=== PATIENT | male | born 1985 ===

== ENCOUNTER 2018-05-07 10:51 | Emergency (ER) | payer OTHER ==
--- NOTE | 2018-05-07 11:00 | C.PDOC ---
History Of Present Illness 32 y/o male comes in for evaluation of abdominal pain, worsening for the last 2 days. Patient is a poor historian. States pain is worst to epigastric region and left side. Also reports nausea and associated diarrhea. No vomiting. Otherwise patient denies any vomiting, chest pain, SOB, dizziness, or dark or bloody stools. Time Seen by Provider: 05/07/18 10:53 Chief Complaint (Nursing): Abdominal Pain History Per: Patient History/Exam Limitations: no limitations Onset/Duration Of Symptoms: Days (x2) Current Symptoms Are (Timing): Worse Location Of Pain/Discomfort: Epigastric, LUQ Quality Of Discomfort: "Pain" Associated Symptoms: Nausea, Diarrhea Past Medical History Reviewed: Historical Data, Nursing Documentation, Vital Signs Other Surgeries: Left hand surgery, Left knee surgery Family History: States: No Known Family Hx - Social History Hx Tobacco Use: Yes Hx Alcohol Use: Yes Hx Substance Use: Yes (Cocaine) Review Of Systems Except As Marked, All Systems Reviewed And Found Negative. Constitutional: Negative for: Fever, Chills Cardiovascular: Negative for: Chest Pain Respiratory: Negative for: Shortness of Breath Gastrointestinal: Positive for: Nausea, Abdominal Pain, Diarrhea. Negative for: Vomiting, Melena, Hematochezia Genitourinary: Negative for: Dysuria, Hematuria Musculoskeletal: Negative for: Back Pain Neurological: Negative for: Weakness, Numbness Physical Exam - Physical Exam Appears: Non-toxic, No Acute Distress Skin: Warm, Dry, No Rash Head: Atraumatic, Normacephalic Eye(s): bilateral: Normal Inspection, PERRL, EOMI Oral Mucosa: Moist Neck: Normal ROM Chest: Symmetrical Cardiovascular: Rhythm Regular, No Murmur Respiratory: Normal Breath Sounds, No Accessory Muscle Use Gastrointestinal/Abdominal: Soft, No Distention, Hernia (?Umbilical hernia, soft) Back: Normal Inspection Extremity: Bilateral: Atraumatic, Normal Color And Temperature Pulses: Left Radial: Normal, Right Radial: Normal Neurological/Psych: Oriented x3, Normal Speech ED Course And Treatment - Laboratory Results Result Diagrams: 05/07/18 11:38 05/07/18 11:38 Medical Decision Making Medical Decision Making: Impression: Abdominal pain- ro colitis, ?hernia on exam Initial Plan: - Blood work - UA - IV fluids - 40 mg IV Protonix - Reassess labs mild leukocytosis, ct colitis pain nearly resolved. ct shows no e/o of hernia. suspect infectious, ichemic unlikely as bicarb 23, abd soft, pain resolved. pt preferes to go home and return with wrosening instead of obs ervation. Disposition - Disposition Referrals: Cornelio Capellan MD [Staff Provider] - Disposition: HOME/ ROUTINE Disposition Time: 14:20 Condition: STABLE Additional Instructions: please see specialist return to er with worsening symptoms or concerns. Prescriptions: Cefpodoxime [Vantin] 100 mg PO BID #20 tab metroNIDAZOLE [Flagyl] 500 mg PO TID #30 tab Instructions: Colitis Forms: [employer] (Greek) - Clinical Impression Clinical Impression: Abdominal pain, Colitis - Scribe Statement The provider has reviewed the documentation as recorded by the Vladimir Courtney Provider Attestation: All medical record entries made by the Vladimir were at my direction and personally dictated by me. I have reviewed the chart and agree that the record accurately reflects my personal performance of the history, physical exam, medical decision making, and the department course for this patient. I have also personally directed, reviewed, and agree with the discharge instructions and disposition.
[2018-05-07 11:06] VITALS: BMI 31.8
[2018-05-07] MEDS ORDERED: Sodium Chloride 0.9% 1,000 ML IV ONE (11:15)
[2018-05-07] MEDS ORDERED: Sodium Chloride 0.9% 1,000 ML ONE (11:22)
[2018-05-07 11:41] LABS: BASO # 0.1 K/uL (0.0-0.2); BASO % 0.8 % (0.0-2.0); HEMOGLOBIN 16.4 g/dL (12.0-18.0); LYMPH # 1.1 K/uL (1.0-4.3); LYMPH % 8.6 % (20.0-40.0); MEAN CELL VOLUME 94.4 fL (80.0-94.0); MEAN CORPUSCULAR HGB CONC 33.9 g/dL (33.0-37.0); MEAN PLATELET VOLUME 8.1 fL (7.2-11.7); MONO # 0.9 K/uL (0.0-0.8); MONO % 7.2 % (0.0-10.0); NEUT # 10.9 K/uL (1.8-7.0); NEUT % 83.4 % (50.0-75.0); PLATELET COUNT 199 K/uL (130-400); RBC 5.12 Mil/uL (4.40-5.90); RED CELL DISTRIBUTION WIDTH 14.2 % (11.5-14.5)
[2018-05-07 11:50] LABS: PROTHROMBIN TIME 11.2 SECONDS (9.7-12.2); SQUAMOUS EPITHIAL < 1 /hpf (0-5); URINE BILIRUBIN NEGATIVE (NEGATIVE); URINE BLOOD NEGATIVE (NEGATIVE); URINE CLARITY Clear (Clear); URINE COLOR Amber (YELLOW); URINE GLUCOSE (UA) NORMAL (Normal); URINE LEUKOCYTE ESTERASE NEG Leu/uL (Negative); URINE PROTEIN NEGATIVE (NEGATIVE); URINE UROBILINOGEN NORMAL mg/dL (0.2-1.0)
[2018-05-07 12:02] LABS: ALB/GLOB RATIO 1.9 (1.0-2.1); ALBUMIN 5.3 g/dL (3.5-5.0); ALT/SGPT 29 U/L (21-72); AST/SGOT 29 U/L (17-59); BLOOD UREA NITROGEN 8 mg/dL (9-20); CALCIUM 9.9 mg/dl (8.6-10.4); GFR NON-AFRICAN AMERICAN > 60; LIPASE 37 U/L (23-300)
[2018-05-07 12:19] LABS: BANDS 5 % (0-2); LYMPHOCYTE 11 % (20-40); MONOCYTE 7 % (0-10); NEUTROPHIL 76 % (50-75); PLATELET ESTIMATE NORMAL (NORMAL); REACTIVE LYMPHOCYTES 1 % (0-0); TOTAL CELLS COUNTED 100
[2018-05-07] MEDS ORDERED: Iodixanol 320 MG/ML 100 ML BOTTLE IV ONE (12:59)
--- NOTE | 2018-05-07 14:18 | CT ---
Date of service: 05/07/2018 PROCEDURE: CT Abdomen and Pelvis with contrast HISTORY: Abdominal pain h/o of umbilical hernia COMPARISON: None available. TECHNIQUE: CT scan of the abdomen and pelvis was performed after administration of intravenous contrast. Oral contrast was not administered. Coronal and sagittal reformatted images were obtained. Contrast dose: 100 mL Visipaque 320 Radiation dose: Total exam DLP = 1140.02 mGy-cm. This CT exam was performed using one or more of the following dose reduction techniques: Automated exposure control, adjustment of the mA and/or kV according to patient size, and/or use of iterative reconstruction technique. FINDINGS: LOWER THORAX: The visualized lungs are clear. LIVER: Normal in size with homogeneous enhancement. No gross lesion or ductal dilatation. GALLBLADDER AND BILE DUCTS: Well distended. No calcified gallstones, wall thickening or pericholecystic fluid. PANCREAS: Normal in size with homogeneous enhancement. No gross lesion or ductal dilatation. SPLEEN: Normal in size and appearance. ADRENALS: No discrete nodule. KIDNEYS AND URETERS: Normal in size with homogeneous enhancement. There is a cortical scar in the right lower pole. No hydronephrosis. No solid mass. VASCULATURE: No aortic aneurysm. There are no aortic atherosclerotic calcifications or mural plaque present. BOWEL: Evaluation of the bowel is limited in the absence of oral contrast. The small bowel loops are normal in caliber. There is diffuse mucosal enhancement and submucosal edema in the ascending transverse and proximal descending colon. No bowel obstruction. APPENDIX: Normal appendix. PERITONEUM: No free fluid. No free air. LYMPH NODES: No enlarged lymph nodes. BLADDER: Well distended and normal in appearance. REPRODUCTIVE: The prostate gland is normal in size. BONES: No acute fracture. Mild degenerative disc disease at L5-S1. OTHER FINDINGS: None. IMPRESSION: Findings are most compatible with nonspecific acute infectious/inflammatory/ischemic colitis predominantly involving the ascending and transverse colon. No perforation or bowel obstruction.
[2018-05-07] MEDS ORDERED: Piperacillin/Tazobact 3.375 gm 100 ML IVPB STA (14:19)
[2018-05-07 14:27] VITALS: BP 112/72; PULSE 74; RESP 22; TEMP 98.5; O2SAT 99
== END 2018-05-07 14:47 | disposition home or self-care (01) ==
LOC: C.ER 10:51
DX: K52.9 Noninfective gastroenteritis and colitis, unspecified (principal)
CPT/HCPCS: 74177; 80053; 81001; 83690; 85025; 85610; 85730; 96361; 96374; 96375; 99284; C9113; J2543; J7030; Q9967